=== PATIENT | male | born 1985 | race Hispanic/Latino ===

== ENCOUNTER 2020-02-02 15:23 | Emergency (ER) | payer OTHER ==
[~2020-02-02] VITALS: Ht 177.8 cm; Wt 95.3 kg
--- NOTE | 2020-02-02 15:29 | NUR ---
ED Nurse Note: Patient from street and brought in by [id number] due to alcohol intoxication. Patient was reported to be lying down on the floor of [employer] and was hearing voices. Patyient came in awake but uncooperative. Respirations are even and unlabored.
[2020-02-02 15:40] VITALS: BP 132/76
[2020-02-02 15:49] VITALS: BP 132/76
--- NOTE | 2020-02-02 15:49 | NUR ---
ED Nurse Note: Pt eloped without being seen by ERMD. Pt belongings not in room and patient not in ED.
--- NOTE | 2020-02-02 15:50 | NUR ---
ED Nurse Note: CN and supervisor paper testing notfiied that pt eloped.
--- NOTE | 2020-02-02 16:17 | Emergency Room Report ---
History of Present Illness General Chief Complaint: Altered Mental Status Source: EMS Present Illness HPI 34-year-old male with no known significant past medical history brought in by paramedics patient is alert and awake and speaking full sentences. Patient is able to ambulate. Denies any drug use. Denies any psychiatric history. Denies any pain. Patient walks out of the ER, walks with a steady gait, follows commands, believe that being medically cleared he shakes his head and pushes the doors to leave. Allergies: Coded Allergies: No Known Allergies (Unverified , 02/02/20) COVID-19 Screening COVID-19 risk:Contact w/high r: No Has patient experienced aragon: No COVID-19 Testing performed VEHICLE CARE SPECIALIST: No Patient History Past Medical History: see triage record Past Surgical History: unable to obtain Family History: unable to obtain Social History: ETOH Reviewed Nursing Documentation: PMH: Agreed; PSxH: Agreed Nursing Documentation-PMH Past Medical History: No History, Except For History Of Psychiatric Problem: Yes Review of Systems All Other Systems: negative except mentioned in HPI Physical Exam Vital Signs Date Time Temp Pulse Resp B/P (MAP) Pulse Ox O2 Delivery O2 Flow Rate FiO2 02/02/20 15:19 99.1 86 16 132/76 (94) 98 Room Air Sp02 EP Interpretation: reviewed, normal General Appearance: alert/responsive Head: normocephalic Eyes: PERRL, lids + conjunctiva normal ENT: normal ENT inspection Neck: supple/symm/no masses Respiratory: normal inspection Cardiovascular: regular rate, rhythm Gastrointestinal: non-tender, no mass, non-distended, no rebound/guarding, normal bowel sounds Musculoskeletal: gait & station normal, digits & nails normal, normal ROM Neurologic: sensory intact, motor strength/tone normal Psychiatric: judgment & insight normal Skin: no rash, well hydrated Lymphatic: normal inspection Medical Decision Making PA Attestation All diagnoses and treatment plans were reviewed and discussed with my supervising physician Dr. Simmons Diagnostic Impression: Primary Impression: Eloped from emergency department ER Course 34-year-old male with no known significant past medical history brought in by paramedics patient is alert and awake and speaking full sentences. Patient is able to ambulate. Denies any drug use. Denies any psychiatric history. Denies any pain. Patient walks out of the ER, walks with a steady gait, follows commands, believe that being medically cleared he shakes his head and pushes the doors to leave. Ddx considered but are not limited to: Alcohol intoxication with altered level of consciousness, alcohol intoxication causing pancreatitis, alcohol abuse, multi drug use and alcohol intoxication Vital signs: are WNL, pt. is afebrile H&PE are most consistent with: eloped, possible alcohol intoxication ORDERS: ETOH serum level, tox screen, UA, CBC, CMP ER intervention: None DISCHARGE: Patient eloped prior to administration of medication and blood draw. Patient was ambulatory, with a steady gait, following commands, control had full judgment was confronted that he cannot leave here without being medically cleared. Last Vital Signs Date Time Temp Pulse Resp B/P (MAP) Pulse Ox O2 Delivery O2 Flow Rate FiO2 02/02/20 15:29 86 16 Room Air 02/02/20 15:19 99.1 132/76 (94) 98 Disposition: ELOPED Condition: Stable Jana Bullard Feb 02, 2020 16:17
[2020-02-02 16:40] LABS: APPEARANCE,URINE CLEAR; BILIRUBIN, URINE NEGATIVE (NEGATIVE); COLOR,URINE PALE YELLOW; GLUCOSE, URINE (UA) NEGATIVE (NEGATIVE); KETONES,URINE NEGATIVE (NEGATIVE); LEUKOCYTE ESTERASE ,URINE NEGATIVE (NEGATIVE); NITRITE,URINE NEGATIVE (NEGATIVE); PH,URINE 6 (4.5-8.0); PROTEIN,URINE NEGATIVE (NEGATIVE); UROBILINOGEN,URINE NORMAL MG/DL (0.0-1.0)
== END 2020-02-02 15:49 | disposition left against medical advice (07) ==
LOC: EDBD 15:23 → EMR 15:49
DX: Z53.29 Procedure and treatment not carried out because of patient's decision for other reasons (principal)
CPT/HCPCS: 80307; 81003; Z7502; 99282